=== PATIENT | male | born 1960 | race African-American/Black ===

== ENCOUNTER 2017-10-08 13:56 | Emergency (ER) | payer BC, MEDICAID ==
[~2017-10-08] VITALS: Ht 180.3 cm; Wt 100.0 kg
[2017-10-08] MEDS ORDERED: AMLO1TAB39 PO (14:00)
[2017-10-08] MEDS ORDERED: KETOROLAC 60MG/2ML VIAL IM ONE (16:30)
[2017-10-08] MEDS ORDERED: MORPHINE SULFATE 1MG/ML 1ML INJ SYR(NEO) IV ONE (17:15)
[2017-10-08] MEDS ORDERED: MORPHINE SULFATE 4 MG/ML CPJ (NOT FOR IM USE) IV STA (17:16)
[2017-10-08] MEDS ORDERED: MORPHINE SULFATE 10 MG/ML CPJ IM NR (17:25)
[2017-10-08 17:32] VITALS: BP 165/90
== END 2017-10-08 17:51 | disposition home or self-care (01) ==
LOC: ER 14:15
DX: M54.41 Lumbago with sciatica, right side (principal); G89.29 Other chronic pain; I10 Essential (primary) hypertension
CPT/HCPCS: 96372; 99284; J1885; J2270

== ENCOUNTER 2024-10-25 15:20 | Emergency (ER) | payer MEDICARE, BC, MEDICAID ==
[~2024-10-25] VITALS: Ht 182.9 cm; Wt 100.0 kg
[~2024-10-25 15:20] MED LIST: AMLO1TAB39 PO
[2024-10-25] MEDS ORDERED: ALBUTEROL (0.083%) 2.5MG/3ML NEB HHN STA (15:47)
[2024-10-25] MEDS ORDERED: IPRATROPIUM BROMIDE (0.02%) 0.5MG/2.5ML NEB HHN STA (15:47)
[2024-10-25] MEDS: METHYLPREDNISOLONE SOD SUCC 125MG/2ML (ACT-O-VIAL) IV STA (15:47)
[2024-10-25 16:52] LABS: BASOPHILS % 0.7 % (0.0-2.0); EOSINOPHILS % 5.7 % (0.0-5.0); HEMATOCRIT. 37.4 % (42.0-52.0); HEMOGLOBIN. 12.5 g/dL (14.0-18.0); LYMPHOCYTES % 44.4 % (20.0-50.0); MEAN CORPUSCULAR HEMOGLOBIN 30.2 pg (28.0-32.0); MEAN CORPUSCULAR HGB CONC 33.3 g/dL (31.0-37.0); MEAN CORPUSCULAR VOLUME 90.7 fL (80.0-94.0); MEAN PLATELET VOLUME 7.7 fl (7.4-10.4); MONOCYTES % 10.9 % (2.0-8.0); NEUTROPHILS % 38.3 % (40.0-76.0); PLATELET 196 x1000/uL (130-400); RED BLOOD CELL COUNT 4.12 mill/uL (4.7-6.1); RED CELL DISTRIBUTION WIDTH 13.8 % (11.6-14.6); WHITE BLOOD COUNT 5.5 x1000/uL (4.5-11.0)
[2024-10-25 16:55] LABS: CHLORIDE 106 mEq/L (98-107); POTASSIUM 4.4 mEq/L (3.5-5.1); SODIUM 139 mEq/L (136-145)
[2024-10-25 16:56] LABS: CALCIUM 9.3 mg/dL (8.7-10.4); CARBON DIOXIDE 26 mEq/L (21-32)
[2024-10-25 17:01] LABS: CREATININE 0.8 mg/dL (0.6-1.3); GLUCOSE 103 mg/dL (70-105); UREA NITROGEN BLOOD 12 mg/dL (9-23)
[2024-10-25] MEDS ORDERED: ALBUTEROL (0.5%) 2.5MG/0.5ML NEB HHN ONE (17:19)
[2024-10-25] MEDS ORDERED: IPRATROPIUM BROMIDE (0.02%) 0.5MG/2.5ML NEB ONE (17:19)
[2024-10-25 17:23] LABS: TROPONIN I HIGH SENSITIVITY < 4 ng/L (3.0-53)
[2024-10-25 17:25] VITALS: PULSE 61; RESP 18; O2SAT 100
[2024-10-25 18:41] VITALS: BP 134/66; PULSE 94; RESP 18; TEMP 36.72516; O2SAT 96
[2024-10-25] MEDS ORDERED: ALBU18HF2 IH (18:58)
== END 2024-10-25 19:09 | disposition home or self-care (01) ==
LOC: ER 15:20
DX: J45.901 Unspecified asthma with (acute) exacerbation (principal); E78.00 Pure hypercholesterolemia, unspecified; I10 Essential (primary) hypertension; Z98.890 Other specified postprocedural states
CPT/HCPCS: 36415; 71045; 80048; 83880; 84484; 85025; 94070; 94640; 98960; 99284